=== PATIENT | female | born 1970 | race Hispanic/Latino ===

== ENCOUNTER 2016-12-30 11:00 | Emergency (ER) | payer BC, OTHER ==
[2016-12-30] MEDS ORDERED: Mag-Al Plus 1200 MG/1200 MG/120 MG/30 ML UDCUP ONE (11:23)
[2016-12-30] MEDS ORDERED: Lidocaine Viscous Sol 2% 15 ml UD Cup ONE (11:24)
[2016-12-30] MEDS ORDERED: Promethazine HCl 25 MG/ML VIAL ONE (11:36)
[2016-12-30 11:38] LABS: #Basophils 0.1 thou/uL (0.0-0.2); #Lymphocytes 0.8 thou/uL (1.20-3.40); #Monocytes 0.6 thou/uL (0.11-0.59); #Neutrophils 7.6 thou/uL (1.40-6.50); %Basophils 1.2 % (0.0-1.0); %Eosinophils 0.5 % (0.0-10.0); %Lymphocytes 9.1 % (21.0-51.0); %Monocytes 6.4 % (0.0-10.0); %Neutrophils 82.8 % (42.0-75.0); Hemoglobin 14.9 g/dL (12.0-16.0); Mean Corpuscular HGB CONC 33.3 g/dL (32.0-36.0); Mean Corpuscular Hemoglobin 29.2 pg (27.0-31.0); Mean Corpuscular Volume 87.8 fl (81.0-99.0); Mean Platelet Volume 8.1 fL (7.4-10.4); Platelet Count 209 thou/uL (130-400); Red Blood Cell (RBC) Count 5.09 mill/uL (4.20-5.40); White Blood Cell (WBC) Count 9.2 thou/uL (4.8-10.8)
--- NOTE | 2016-12-30 11:51 | RAD ---
SINGLE VIEW OF CHEST: Date: 12/30/16 COMPARISON: None. HISTORY: Left neck and upper back pain. Left chest and arm pain. FINDINGS: Single view of the chest shows a normal sized cardiomediastinal silhouette. There is no evidence of consolidation, mass, or pleural effusion. The bones are unremarkable. IMPRESSION: No evidence of acute cardiopulmonary disease. POS: [facility]
[2016-12-30 11:54] LABS: ALT (SGPT) 19 U/L (8-55); AST (SGOT) 18 U/L (5-34); Albumin 4.6 g/dL (3.5-5.0); Alkaline Phosphatase 56 U/L (40-150); Anion Gap 18 mmol/L (10-20); BUN (Urea Nitrogen) 25 mg/dL (7.0-18.7); Bilirubin, Total 0.5 mg/dL (0.2-1.2); Calc. Creatinine Clearance 0 mL/min (70-130); Calcium 9.5 mg/dL (7.8-10.44); Carbon Dioxide 27 mmol/L (22-29); Chloride 98 mmol/L (98-107); Estimated GFR-MDRD 74; Glucose 97 mg/dL (70-105); Potassium 3.6 mmol/L (3.5-5.1); Protein, Total 7.6 g/dL (6.0-8.3); Sodium 139 mmol/L (136-145)
[2016-12-30 11:56] LABS: Troponin I 0.017 ng/mL (< 0.028)
[2016-12-30] MEDS ORDERED: Sodium Chloride 0.9% 1,000 ML ONE (12:16)
[2016-12-30] MEDS ORDERED: Sodium Chloride 0.9% 100 ML ONE (12:16)
[2016-12-30] MEDS ORDERED: cefTRIAXone\\ROCEPHIN 2 GM VIAL ONE (12:16)
[2016-12-30] MEDS ORDERED: Pantoprazole 40 MG VIAL ONE (12:16)
== END 2016-12-30 13:00 | disposition home or self-care (01) ==
LOC: NAV ERS 11:00
DX: K29.00 Acute gastritis without bleeding (principal); K20.9 Esophagitis, unspecified; F41.9 Anxiety disorder, unspecified; F32.9 Major depressive disorder, single episode, unspecified; Z79.899 Other long term (current) drug therapy
CPT/HCPCS: 36415; 71010; 80053; 82553; 84484; 85025; 93005; 96365; 96375; C9113; J0696; J2550; J7050

== ENCOUNTER 2017-10-03 15:07 | Outpatient (CLI) | payer BC ==
--- NOTE | 2017-10-03 15:48 | RAD ---
LEFT HIP 2 VIEWS: Date: 10/03/17 HISTORY: Left hip pain. FINDINGS/IMPRESSION: No fracture, dislocation, or bony destruction is identified. POS: [facility]
--- NOTE | 2017-10-03 15:48 | RAD ---
AP PELVIS: Date: 10/03/17 HISTORY: Left hip pain. FINDINGS/IMPRESSION: No fracture, dislocation, or bony destruction is identified. POS: [facility]
== END 2017-10-03 15:08 | disposition home or self-care (01) ==
LOC: NAV RAD 15:07
PROVIDERS: ATTEND Family Medicine
DX: M25.552 Pain in left hip (principal)
CPT/HCPCS: 72170

== ENCOUNTER 2018-11-06 11:39 | Outpatient (CLI) | payer BC ==
--- NOTE | 2018-11-06 13:40 | ULT ---
RIGHT UPPER QUADRANT ULTRASOUND: Date; 11/06/18 INDICATION: Right upper quadrant pain for 2 weeks. FINDINGS: No focal hepatic lesion or acute gallbladder pathology. Common duct is normal at 4.0 mm. There is no ascites. 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 IMPRESSION: 1. No acute gallbladder pathology. 2. There is increased echogenicity of the liver, which can be seen in the setting of fatty infiltrat ion. Correlate with liver function enzymes. POS: [facility]
== END 2018-11-06 11:40 | disposition home or self-care (01) ==
LOC: NAV ULT 11:39
PROVIDERS: ATTEND Family Medicine
DX: R10.11 Right upper quadrant pain (principal); R93.2 Abnormal findings on diagnostic imaging of liver and biliary tract
CPT/HCPCS: 76705

== ENCOUNTER 2020-04-27 11:54 | Outpatient (CLI) | payer BC ==
--- NOTE | 2020-04-27 12:44 | RAD ---
EXAM: 3 views of the thoracic spine HISTORY: Muscle strain and radiculopathy COMPARISON: None FINDINGS: 3 views of the thoracic spine shows normal height and alignment of the vertebral bodies and intervertebral discs without fracture or subluxation. There is mild scoliotic curvature the spine. No significant degenerative changes are seen. IMPRESSION: Mild scoliosis without acute thoracic spine abnormality.
--- NOTE | 2020-04-27 13:42 | RAD ---
CERVICAL SPINE 3 VIEWS: HISTORY: Muscle strain, radiculopathy. FINDINGS: C7-T1 is obscured on the lateral view. C2 odontoid and C1 are obscured on the AP open mouth views. No evidence for acute fracture or dislocation or malalignment involving the visualized C-spine. Mild facet arthrosis. IMPRESSION: Mild facet arthrosis, evidence for spondylosis. POS: [facility]
== END 2020-04-27 11:55 | disposition home or self-care (01) ==
LOC: NAV RAD 11:54
PROVIDERS: ATTEND Nurse Practitioner Adult Health
DX: S29.012A Strain of muscle and tendon of back wall of thorax, initial encounter (principal); M47.22 Other spondylosis with radiculopathy, cervical region; M41.9 Scoliosis, unspecified
CPT/HCPCS: 72040; 72072

== ENCOUNTER 2024-01-08 16:37 | Outpatient (CLI) | payer OTHER | END 2024-01-08 16:38 | disposition home or self-care (01) | LOC: NAV RAD 16:37 | PROVIDERS: ATTEND Nurse Practitioner Family | DX: M79.671 Pain in right foot (principal); M77.31 Calcaneal spur, right foot; M79.89 Other specified soft tissue disorders ==